=== PATIENT | male | born 1960 | race Caucasian/White ===

== ENCOUNTER 2021-01-10 15:57 | Emergency (ER) | payer BC ==
[~2021-01-10] VITALS: Ht 185.4 cm; Wt 99.8 kg
[2021-01-10 17:13] LABS: BASOPHILS ABSOLUTE AUTO 0.05 K/mm3 (0.00-0.23); BASOPHILS PERCENT AUTO 1 % (0-2); EOSINOPHILS ABSOLUTE AUTO 0.12 K/mm3 (0.00-0.68); EOSINOPHILS PERCENT AUTO 2 % (0-6); Hematocrit 43.1 % (37.0-53.0); Hemoglobin 14.5 g/dL (13.5-17.5); IMMATURE GRAN ABSOLUTE AUTO 0.01 K/mm3 (0.00-0.10); IMMATURE GRAN PERCENT AUTO 0 % (0-1); LYMPHOCYTES ABSOLUTE AUTO 1.46 K/mm3 (0.84-5.20); LYMPHOCYTES PERCENT AUTO 22 % (21-46); MONOCYTES ABSOLUTE AUTO 0.61 K/mm3 (0.16-1.47); MONOCYTES PERCENT AUTO 9 % (4-13); Mean Corpuscular HGB 30.4 pg (26.0-34.0); Mean Corpuscular HGB Conc 33.6 g/dL (31.5-36.5); Mean Corpuscular Volume 90 fL (80-100); Mean Platelet Volume 9.6 fL (9.1-12.4); NEUTROPHILS PERCENT AUTO 66 % (41-73); Platelet Count 244 K/mm3 (150-400); RDW Coefficient Variation 12.8 % (11.7-14.2); RDW Standard Deviation 42.1 fL (35.1-46.3); Red Blood Cell Count 4.77 M/mm3 (4.30-5.90); White Blood Cell Count 6.55 K/mm3 (4.00-11.30)
[2021-01-10 17:30] LABS: Alanine Aminotransfer (ALT/SGP 19 U/L (12-78); Albumin, Blood 3.4 g/dL (3.4-5.0); Albumin/Globulin Ratio 0.9 (0.8-1.8); Alk Phos 57 U/L (50-136); Anion Gap 5 mmol/L (6-16); Aspartate Aminotrans (AST/SGOT 13 U/L (12-37); Bilirubin, Total 0.6 mg/dL (0.1-1.0); Blood Urea Nitrogen 17 mg/dL (8-24); CO2, Blood 26 mmol/L (21-32); Calcium, Blood 8.6 mg/dL (8.5-10.1); Chloride, Blood 110 mmol/L (98-108); Creatinine, Blood 1.06 mg/dL (0.60-1.20); Globulin, Blood 3.6 g/dL (2.2-4.0); Glomerular Filtration Rate >60 (60-); Glucose, Blood 92 mg/dL (70-99); Potassium, Blood 4.3 mmol/L (3.5-5.5); Sodium, Blood 141 mmol/L (136-145); Troponin I <0.015 ng/mL (0.000-0.040)
[2021-01-10] MEDS ORDERED: Pepcid20 MG PO (19:19)
== END 2021-01-10 19:51 | disposition home or self-care (01) ==
LOC: ER 15:57
PROVIDERS: Physician Assistant
DX: R13.10 Dysphagia, unspecified (principal); R10.13 Epigastric pain
CPT/HCPCS: 36415; 71046; 80053; 83690; 84484; 85025; 93005; 93010; 96374; 99284-25; A9270

== ENCOUNTER 2021-01-12 10:53 | Emergency (ER) | payer BC ==
[~2021-01-12] VITALS: Ht 185.4 cm; Wt 99.8 kg
[~2021-01-12 10:53] MED LIST: Pepcid20 MG PO
== END 2021-01-12 13:10 | disposition home or self-care (01) ==
LOC: ER 10:53
DX: M54.32 Sciatica, left side (principal)
CPT/HCPCS: 73502; 96372; 99283-25; J1885

== ENCOUNTER 2021-09-29 06:02 | Day surgery (SDC) | payer BC, OTHER ==
[~2021-09-29] VITALS: Ht 185.4 cm; Wt 104.3 kg
[~2021-09-29 06:02] MED LIST changes: +Acetaminophen650 M1 PO; +IBUP800 PO
--- NOTE | 2021-09-29 18:20 | NUR ---
PATIENT CURRENTLY SITTING UP IN CHAIR AT BEDSIDE. NO SIGNS OR SYMPTOMS ACUTE DISTRESS NOTED. NO COMPLAINTS VOICED. CALL LIGHT AND WATER IN EASY REACH. ABLE TO MAKE NEEDS AND WANTS KNOWN. DRESSING TO RIGHT KNEE IS CDI. POLAR PACK, TEDS AND SCDS ARE ON. PATIENT HAS VOIDED SINCE SURGERY. WORKED WITH THERAPY AND DID WELL. WALKED IN ROOM. WILL MONITOR.
--- NOTE | 2021-09-30 00:21 | NUR ---
SHIFT SUMMARY: PT. AOX4, STATED HIS R KNEE PAIN IS VERY MINIMAL. MEDICATED PER EMAR. ICE ON POLAR PACK APPLIED. PT. IS SLEEPING COMFORTABLY, NO S/S OF RESP./CV DISTRESS NOTED. WILL CONTINUE TO MONITOR.
[2021-09-30 06:21] LABS: BASOPHILS ABSOLUTE AUTO 0.04 K/mm3 (0.00-0.23); BASOPHILS PERCENT AUTO 0 % (0-2); EOSINOPHILS ABSOLUTE AUTO 0.05 K/mm3 (0.00-0.68); EOSINOPHILS PERCENT AUTO 0 % (0-6); Hematocrit 36.8 % (37.0-53.0); Hemoglobin 12.4 g/dL (13.5-17.5); IMMATURE GRAN ABSOLUTE AUTO 0.05 K/mm3 (0.00-0.10); IMMATURE GRAN PERCENT AUTO 0 % (0-1); LYMPHOCYTES ABSOLUTE AUTO 1.43 K/mm3 (0.84-5.20); LYMPHOCYTES PERCENT AUTO 11 % (21-46); MONOCYTES ABSOLUTE AUTO 0.88 K/mm3 (0.16-1.47); MONOCYTES PERCENT AUTO 7 % (4-13); Mean Corpuscular HGB 30.8 pg (26.0-34.0); Mean Corpuscular HGB Conc 33.7 g/dL (31.5-36.5); Mean Corpuscular Volume 91 fL (80-100); NEUTROPHILS ABSOLUTE AUTO 10.04 K/mm3 (1.96-9.15); NEUTROPHILS PERCENT AUTO 81 % (41-73); Platelet Count 199 K/mm3 (150-400); RDW Coefficient Variation 12.8 % (11.7-14.2); RDW Standard Deviation 42.3 fL (35.1-46.3); Red Blood Cell Count 4.03 M/mm3 (4.30-5.90); White Blood Cell Count 12.49 K/mm3 (4.00-11.30)
[2021-09-30 06:55] LABS: Anion Gap 6 mmol/L (6-16); Blood Urea Nitrogen 11 mg/dL (8-24); Bun/Creatinine Ratio 15.2 (12.0-20.0); CO2, Blood 24 mmol/L (21-32); Calcium, Blood 8.2 mg/dL (8.5-10.1); Chloride, Blood 108 mmol/L (98-108); Creatinine, Blood 0.72 mg/dL (0.60-1.20); Glomerular Filtration Rate >60 (60-); Glucose, Blood 111 mg/dL (70-99); Sodium, Blood 138 mmol/L (136-145)
[2021-09-30] MEDS ORDERED: ASPI81CH PO (07:49)
[2021-09-30] MEDS ORDERED: Percocet 5-3251 EACH PO (07:49)
--- NOTE | 2021-09-30 10:00 | NUR ---
DISCHARGE SUMMARY PT A&OX2, VSS/RA, VOIDING WELL, AMB W/FWW/GB, PAIN MANAGED, AMANDEEP PO. LEFT FLOOR VIA WC WITH RN, TO GO HOME WITH , WITH ALL PERSONAL POSSESSIONS INCLUDING DC PACKET AND 2 SCRIPTS (ASA,PERC), 2 AQUACELS. DC INSTRUCTIONS PROVIDED. PT REP UNDERSTANDING THOSE INSTRUCTIONS INCLUDING FU WITH SG 2 WKS, WEAR COMPRESSION STOCKINGS 6 WKS SG AND 2 WKS, ASA BID, OK TO SHOWER/NO TUB BATHS, AMB FWW AT ALL TIMES, REST:ELEVATE/ICE. 2 IVS DC.
--- NOTE | 2021-10-02 10:57 | NUR ---
10/02/21 1057 Mishel Martinez VERIFICATIONS: EDIT CHRAT.
== END 2021-09-30 10:00 | disposition home or self-care (01) ==
LOC: ORSCMMR 06:02 → ORD 08:15 → SURS 11:50 → ORSCMMR 09-30 10:00
PROVIDERS: Orthopaedic Surgery
PROC: 0SRC0JA Replacement of Right Knee Joint with Synthetic Substitute, Uncemented, Open Approach (ICD-10-PCS; principal; 2021-09-29 08:15)
DX: M17.11 Unilateral primary osteoarthritis, right knee (principal)
CPT/HCPCS: 36415; 73560-RT; 80048; 85025; 88304; 97110; 97116; 97162; 97530; A9270; C1776; J0171; J0690; J0735; J1100; J1885; J2250; J2405; J2704; J2795; J3010; J7120